=== PATIENT | female | born 1970 | race Caucasian/White ===

== ENCOUNTER 2024-10-18 08:50 | Emergency (ER) | payer BC, MEDICAID ==
[~2024-10-18] VITALS: Ht 160 cm; Wt 70.5 kg
[~2024-10-18 08:50] MED LIST: HYDR-4383 PO
[2024-10-18 08:59] VITALS: BP 145/86; PULSE 86; TEMP 98.4; O2SAT 99
[2024-10-18] MEDS: ketorolac trometh 15mg/ml vial 15 MG/ML ML IM ONE (09:36)
[2024-10-18] MEDS: LIDOcaine 5% patch TP STA (09:36)
[2024-10-18] MEDS ORDERED: LIDO700A32 TD (10:39)
[2024-10-18] MEDS ORDERED: IBUP-1984 PO (10:39)
[2024-10-18 10:53] VITALS: RESP 16
== END 2024-10-18 10:55 | disposition home or self-care (01) ==
LOC: ER 08:51
DX: M25.511 Pain in right shoulder (principal); G89.29 Other chronic pain; Z79.899 Other long term (current) drug therapy; Z88.5 Allergy status to narcotic agent
CPT/HCPCS: 73030; 96372; 99283; J1885

== ENCOUNTER 2024-10-26 00:22 | Emergency (ER) | payer MEDICAID ==
[~2024-10-26] VITALS: Ht 162.6 cm; Wt 76.4 kg
[~2024-10-26 00:22] MED LIST changes: +IBUP-1984 PO; +LIDO700A32 TD
[2024-10-26 01:05] VITALS: PULSE 107; RESP 20; O2SAT 97
[2024-10-26] MEDS: ipratropium/albuterol 3ml nebule NEB ONE (01:05)
[2024-10-26 01:12] VITALS: PULSE 108; RESP 20; O2SAT 100
[2024-10-26] MEDS: levoFLOXACIN 750MG TABLET PO STA (01:29)
[2024-10-26] MEDS: morphine 4 MG/ML inj SYRINge IV ONE (01:30)
[2024-10-26] MEDS: acetaminophen 325mg tablet PO ONE (01:30)
[2024-10-26] MEDS: predniSONE 20 mg tablet PO ONE (02:09)
[2024-10-26] MEDS ORDERED: LEVO-65 PO (02:29)
[2024-10-26] MEDS ORDERED: PRED50TA PO (02:29)
[2024-10-26] MEDS ORDERED: CODE120S2 PO (02:30)
[2024-10-26] MEDS ORDERED: ALBU8HFA INH (02:30)
[2024-10-26 02:42] VITALS: BP 113/67; PULSE 102; RESP 18; TEMP 99.2; O2SAT 96
== END 2024-10-26 02:45 | disposition home or self-care (01) ==
LOC: ER 00:23
DX: J20.9 Acute bronchitis, unspecified (principal); J98.4 Other disorders of lung; Z79.899 Other long term (current) drug therapy; Z79.1 Long term (current) use of non-steroidal anti-inflammatories (NSAID)
CPT/HCPCS: 94640; 96374; 99284; J2270; J7512

== ENCOUNTER 2024-11-06 08:15 | Outpatient (CLI) | payer MEDICAID ==
[~2024-11-06 08:15] MED LIST changes: +ALBU8HFA INH; +CODE120S2 PO; -IBUP-1984 PO; +PRED50TA PO
== END 2024-11-06 23:59 | disposition home or self-care (01) ==
LOC: MRI02 08:15
PROVIDERS: ATTEND Physician Assistant Surgical
DX: M67.813 Other specified disorders of tendon, right shoulder (principal); M89.311 Hypertrophy of bone, right shoulder; M25.511 Pain in right shoulder; M75.01 Adhesive capsulitis of right shoulder; R60.9 Edema, unspecified
CPT/HCPCS: 73221

== ENCOUNTER 2025-02-14 16:49 | Emergency (ER) | payer MEDICAID ==
[~2025-02-14] VITALS: Ht 162.6 cm; Wt 72.5 kg
[~2025-02-14 16:49] MED LIST changes: -ALBU8HFA INH; -CODE120S2 PO
[2025-02-14 17:14] LABS: BILIRUBIN,URINE NEGATIVE (Neg); CLARITY,URINE CLEAR (Clear); COLOR,URINE YELLOW (Yellow); GLUCOSE, URINE NEGATIVE (Neg); KETONES,URINE NEGATIVE (Neg); LEUKOCYTE ESTERASE ,URINE NEGATIVE (Neg); NITRITES, URINE NEGATIVE (Neg); OCCULT BLOOD,URINE NEGATIVE (Neg); PH,URINE 5.5 (4.8-8.0); PROTEIN,URINE NEGATIVE (Neg); UROBILINOGEN,URINE 0.2 E.U/dL (0.2-1.0)
[2025-02-14 17:15] LABS: URINE HCG NEGATIVE (NEG)
[2025-02-14 17:17] LABS: UA COLLECTION TYPE CLN CATCH MIDSTREAM
[2025-02-14 17:43] LABS: BASOPHILS # (AUTO) 0.1 X10'3 (0-0.2); BASOPHILS % (AUTO) 0.9 % (0-1); EOSINOPHILS # (AUTO) 0.3 X10'3 (0-0.9); HEMATOCRIT 37.8 % (35.0-45.0); LYMPHOCYTES # (AUTO) 2.1 X10'3 (1.1-4.8); LYMPHOCYTES % (AUTO) 25.1 % (21-51); MEAN CORPUSCULAR HEMOGLOBIN 30.1 PG (27.0-31.0); MEAN CORPUSCULAR HGB CONC 34.3 g/dL (33.0-36.5); MEAN CORPUSCULAR VOLUME 87.6 FL (78-98); MEAN PLATELET VOLUME 7.8 FL (7.4-10.4); MONOCYTES # (AUTO) 0.5 X10'3 (0-0.9); MONOCYTES % (AUTO) 6.4 % (2-12); NEUTROPHILS # (AUTO) 5.4 X10'3 (1.8-7.7); NEUTROPHILS % (AUTO) 63.6 % (42-75); PLATELET COUNT 474 X10'3 (140-440); RED BLOOD COUNT 4.31 X10'6 (4.20-5.60); RED CELL DISTRIBUTION WIDTH 14.9 % (11.5-14.5); WHITE BLOOD COUNT 8.5 X10'3 (4.5-11.0)
[2025-02-14 18:00] LABS: ALBUMIN 3.8 G/DL (3.4-5.0); ANION GAP 9 (8-16); BILIRUBIN,TOTAL 0.2 MG/DL (0.1-1.0); BLOOD UREA NITROGEN 20 MG/DL (7-18); BUN/CREATININE RATIO 32.3 (10.0-20.0); CALCIUM 8.9 MG/DL (8.5-10.1); CHLORIDE 104 MMOL/L (99-107); CREATININE 0.62 MG/DL (0.40-0.90); GLUCOSE 105 MG/DL (70-104); POTASSIUM 3.8 MMOL/L (3.5-5.1); SODIUM 142 MMOL/L (135-145); TOTAL CARBON DIOXIDE 28.7 MMOL/L (24-32); TOTAL PROTEIN 7.7 G/DL (6.4-8.2); eCRCL 87 ML/MIN; eGFR > 90 ML/MIN
[2025-02-14 18:01] LABS: ALANINE AMINOTRANSFERASE 30 U/L (12-78); ALKALINE PHOSPHATASE 77 IU/L (46-116); ASPARTATE AMINO TRANSFERASE 15 U/L (10-37); LIPASE 55 U/L (16-77)
[2025-02-14] MEDS ORDERED: iohexol 300mg/ml 100ml inj. ONE (21:13)
[2025-02-14] MEDS: morphine 4 MG/ML inj SYRINge IV ONE (21:16)
[2025-02-14] MEDS: normal saline 1000ml 1,000 ML IV ONE (21:18)
[2025-02-14] MEDS: ondansetron/PF 4mg/2ml inj IV ONE (21:18)
[2025-02-14] MEDS: ketorolac trometh 15mg/ml vial 15 MG/ML ML IV ONE (23:44)
[2025-02-14 23:51] VITALS: BP 122/82; PULSE 91; RESP 18; TEMP 98.3; O2SAT 98
== END 2025-02-14 23:52 | disposition home or self-care (01) ==
LOC: ER 16:49
DX: K92.1 Melena (principal); K80.20 Calculus of gallbladder without cholecystitis without obstruction
CPT/HCPCS: 36415; 74177; 76700; 80053; 81003; 81025; 83690; 85025; 96361; 96374; 96375; 99285; J1885; J2270; J2405; J7030; Q9967; 99284